=== PATIENT | female | born 1975 | race Asian ===

== ENCOUNTER 2017-08-08 10:49 | Emergency (ER) | payer BC, OTHER ==
[2017-08-08 11:34] LABS: ADD MAN DIFF? NO
[2017-08-08 11:37] LABS: BASOPHILS % 0.4 % (0.0-2.0); EOSINOPHILS # 0.4 10^3/ul (0.0-0.5); EOSINOPHILS % 4.5 % (0.0-7.0); HEMATOCRIT 39.4 % (37.0-47.0); LYMPHOCYTES # 1.3 10^3/ul (0.8-2.9); LYMPHOCYTES % 16.6 % (15.0-51.0); MEAN CORPUSCULAR HEMOGLOBIN 29.3 pg (29.0-33.0); MEAN CORPUSCULAR VOLUME 88.9 fl (82.0-101.0); MEAN PLATELET VOLUME 8.7 fl (7.4-10.4); MONOCYTES % 12.7 % (0.0-11.0); NEUTROPHIL # 5.1 10^3/ul (1.6-7.5); NEUTROPHILS % 65.4 % (39.0-77.0); PLATELET COUNT 328 10^3/UL (140-415); RED BLOOD COUNT 4.43 10^6/ul (4.20-5.40); RED CELL DISTRIBUTION WIDTH 12.4 % (11.5-14.5)
[2017-08-08 11:37] LABS: WHITE BLOOD COUNT 7.8 10^3/ul (4.8-10.8)
[2017-08-08] MEDS: hydrALAzine 20 MG INJ IV (11:39)
[2017-08-08 11:57] LABS: ALANINE AMINOTRANSFERASE 35 IU/L (13-69); ALBUMIN 4.3 g/dl (3.3-4.9); ALBUMIN/GLOBULIN RATIO 1.13; ALKALINE PHOSPHATASE 83 IU/L (42-121); ANION GAP 14 (8-16); ASPARTATE AMINO TRANSFERASE 20 IU/L (15-46); BILIRUBIN,INDIRECT 0.3 mg/dl (0-1.1); BILIRUBIN,TOTAL 0.3 mg/dl (0.2-1.3); BLOOD UREA NITROGEN 7 mg/dl (7-20); CALCIUM 8.5 mg/dl (8.4-10.2); CARBON DIOXIDE 23 mmol/L (21-31); CHLORIDE 106 mmol/L (97-110); CREATINE KINASE 55 IU/L (23-200); CREATININE 0.56 mg/dl (0.44-1.00); GLUCOSE 99 mg/dl (70-220); POTASSIUM 4.1 mmol/L (3.5-5.1); SODIUM 139 mmol/L (135-144); TOTAL PROTEIN 8.1 g/dl (6.1-8.1)
[2017-08-08 11:58] LABS: INR 0.84; PROTIME 11.6 Sec (11.9-14.9); PT RATIO 0.9
[2017-08-08 11:59] LABS: PARTIAL THROMBOPLASTIN TIME 31.6 Sec (25.0-35.0)
[2017-08-08 12:09] LABS: B-TYPE NATRIURETIC PEPTIDE 88 PG/ML (0-125); CK INDEX 1.5; CK-MB 0.84 ng/ml (0.0-2.4)
[2017-08-08 12:24] LABS: TROPONIN-I < 0.012 ng/ml (0.000-0.120)
[2017-08-08] MEDS: KETOROLAC 30 MG INJ IV (12:38)
[2017-08-08] MEDS: AZITHROMYCIN 250 MG TAB PO (13:54)
== END 2017-08-08 14:19 | disposition home or self-care (01) ==
LOC: E/R 10:49
DX: I16.0 Hypertensive urgency (principal); R07.9 Chest pain, unspecified
CPT/HCPCS: 71045; 80053; 82550; 82553; 83880; 84484; 84703; 85025; 85610; 85730; 93005; 96374; 96375; 99285-25